=== PATIENT | female | born 1970 | race Caucasian/White ===

== ENCOUNTER 2017-05-26 10:41 | Inpatient (IN) | payer BC ==
[2017-05-26 11:52] VITALS: BMI 17.6
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
[2017-05-26] MEDS ORDERED: MENTHOL/PHENOL 1 EACH UD MM PRN (17:40)
[2017-05-26] MEDS ORDERED: MAG HYDROX/AL HYDROX/SIMETH 30 ML UNIT-DOSE CUP PO PRN (17:40)
[2017-05-26] MEDS ORDERED: IBUPROFEN 400 MG TABLET (FP) PO PRN (17:40)
[2017-05-26] MEDS ORDERED: P-EPHED 60MG/TRIPROLIDI 2.5MG TABLET PO PRN (17:40)
[2017-05-26] MEDS ORDERED: MAGNESIUM CITRATE 300 ML BOTTLE PO PRN (17:40)
[2017-05-26] MEDS ORDERED: LOPERAMIDE HCL 2 MG CAPSULE PO PRN (17:40)
[2017-05-26] MEDS ORDERED: ACETAMINOPHEN 325 MG TABLET (FP) PO PRN (17:40)
[2017-05-26] MEDS ORDERED: MAGNESIUM HYDROX 2400MG/30ML ORAL SUSPENSION 30 ML CUP PO PRN (17:40)
[2017-05-26] MEDS ORDERED: guaiFENesin/D-METHORPHAN HB 10 ML UNIT-DOSE CUPS PO PRN (17:40)
[2017-05-26] MEDS ORDERED: chlordiazePOXIDE HCL 25 MG CAPSULE PO ONE (18:00)
[2017-05-26] MEDS: chlordiazePOXIDE HCL 25 MG CAPSULE PO SCH (22:05)
[2017-05-26] MEDS: THIAMINE HCL 100 MG TABLET (FP) PO SCH (22:05)
[2017-05-26 23:34] LABS: URINE APPEARANCE CLEAR; URINE BILIRUBIN NEGATIVE (NEGATIVE); URINE BLOOD NEGATIVE (NEGATIVE); URINE COLOR YELLOW; URINE GLUCOSE (UA) NEGATIVE (NEGATIVE); URINE KETONE TRACE (NEGATIVE); URINE LEUK ESTERASE NEGATIVE (NEGATIVE); URINE NITRITE NEGATIVE (NEGATIVE); URINE PROTEIN NEGATIVE (NEGATIVE); URINE UROBILINOGEN NEGATIVE mg/dL (0.2-1.0)
[2017-05-27] MEDS: chlordiazePOXIDE HCL 25 MG CAPSULE PO PRN (00:44)
[2017-05-27] MEDS: chlordiazePOXIDE HCL 25 MG CAPSULE PO SCH ×4 (06:02→22:15)
--- NOTE | 2017-05-27 09:41 | PN ---
S CIWA - CIWA Score Nausea/Vomitin Muscle Tremors: 3 Anxiety: 3 Agitation: 3 Paroxysmal Sweats: 3 Orientation: 0-Oriented Tacttile Disturbances: 1-Very Mild Itch/Numbness Auditory Disturbances: 0-None Visual Disturbances: 0-None Headache: 1-Very Mild CIWA-Ar Total Score: 17 S Progress Note (SOAP) Subjective: nausea, sweats, interrupted sleep, anxiety, tremors Objective: 05/27/17 09:40 Vital Signs - 24 hr 05/26/17 05/26/17 05/26/17 11:51 17:52 21:53 Temperature 97.4 F L 97.9 F 97.9 F Pulse Rate 65 60 64 Respiratory 16 18 16 Rate Blood Pressure 99/70 114/71 105/70 05/27/17 05/27/17 05/27/17 00:30 03:30 06:26 Temperature 98.8 F Pulse Rate 57 L Respiratory 18 18 16 Rate Blood Pressure 150/77 Laboratory Tests 05/26/17 Unknown Urine Color Yellow Urine Appearance Clear Urine pH 5.0 Ur Specific [place] 1.018 Urine Protein Negative Urine Glucose (UA) Negative Urine Ketones Trace H Urine Blood Negative Urine Nitrite Negative Urine Bilirubin Negative Urine Urobilinogen Negative Ur Leukocyte Esterase Negative labs still pending Assessment: 05/27/17 09:41 withdrawal sx cont detox, fluids, encourage ambulation
[2017-05-27 10:19] LABS: ANION GAP 11 (8-16); BLOOD UREA NITROGEN 5 mg/dL (7-18); CALCIUM 7.8 mg/dL (8.5-10.1); CHLORIDE 102 mmol/L (98-107); CO2 26 mmol/L (21-32); CREATININE 0.5 mg/dL (0.55-1.02); GLUCOSE,RANDOM 64 mg/dL (74-106); POTASSIUM 4.2 mmol/L (3.5-5.1); SGPT/ALT 205 U/L (12-78); SODIUM 139 mmol/L (136-145)
[2017-05-27 10:20] LABS: HEMATOCRIT 39.9 % (32.4-45.2); HEMOGLOBIN 13.1 GM/dL (10.7-15.3); MCH 33.4 pg (25.7-33.7); MCHC 32.7 g/dl (32.0-36.0); MEAN PLT VOLUME 8.8 fl (7.5-11.1); PLATELET COUNT 99 K/MM3 (134-434); RBC 3.91 M/mm3 (3.60-5.2); RDW 13.6 % (11.6-15.6); WHITE BLOOD COUNT 2.6 K/mm3 (4.0-10.0)
[2017-05-27 10:21] LABS: ALK PHOS 187 U/L (45-117); BILIRUBIN,TOTAL 0.8 mg/dL (0.2-1.0); TOT PROT 6.5 g/dl (6.4-8.2)
[2017-05-27 10:26] LABS: SGOT/AST 714 U/L (15-37)
[2017-05-27] MEDS: SERTRALINE HCL 25 MG TABLET (FP) PO SCH (10:39)
[2017-05-27] MEDS: PRENATAL VITAMINS W/ FOLIC ACID TABLET (FP) PO SCH (10:39)
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
[2017-05-27] MEDS ORDERED: FLU VACCINE QUAD 60 MCG/0.5 ML (MDV 17-18) IM ONE (12:00)
[2017-05-27] MEDS ORDERED: PNEUMOCOCCAL 23 VACCINE 0.5 ML VIAL IM ONE (12:00)
[2017-05-27] MEDS ORDERED: PNEUMOC 13-VAL CONJ-DIP CRM/PF 0.5 ML DISP.SYRIN IM ONE (12:00)
--- NOTE | 2017-05-27 14:10 | EKG ---
Test Reason : Blood Pressure : / mmHG Vent. Rate : 056 BPM Atrial Rate : 056 BPM P-R Int : 120 ms QRS Dur : 116 ms QT Int : 446 ms P-R-T Axes : 044 076 072 degrees QTc Int : 430 ms SINUS BRADYCARDIA OTHERWISE NORMAL ECG NO PREVIOUS ECGS AVAILABLE Confirmed by MD MONISHA, SHANDA ([id number]) on 05/27/2017 2:09:55 PM Referred By: Confirmed By:SHANDA BEARDEN MD
--- NOTE | 2017-05-27 15:13 | EKG ---
Test Reason : Blood Pressure : / mmHG Vent. Rate : 068 BPM Atrial Rate : 068 BPM P-R Int : 142 ms QRS Dur : 088 ms QT Int : 408 ms P-R-T Axes : 018 070 058 degrees QTc Int : 433 ms NORMAL SINUS RHYTHM Motion artifact. WHEN COMPARED WITH ECG OF 27-MAY-2017 06:49, NO SIGNIFICANT CHANGE WAS FOUND Confirmed by MD BEARDEN PENG ([id number]) on 05/27/2017 3:13:01 PM Referred By: Confirmed By:SHANDA BEARDEN MD
--- NOTE | 2017-05-27 15:15 | EKG ---
Test Reason : Blood Pressure : / mmHG Vent. Rate : 056 BPM Atrial Rate : 156 BPM P-R Int : 000 ms QRS Dur : 088 ms QT Int : 466 ms P-R-T Axes : 062 067 059 degrees QTc Int : 449 ms SINUS BRADYCARDIA Motion artifact. Normal ECG except bradycardia. Confirmed by MD MONISHA, SHANDA ([id number]) on 05/27/2017 3:15:38 PM Referred By: Confirmed By:SHANDA BEARDEN MD
[2017-05-27] MEDS: diphenhydrAMINE HCL 50 MG CAPSULE PO PRN (22:15)
[2017-05-27] MEDS: THIAMINE HCL 100 MG TABLET (FP) PO SCH (22:15)
[2017-05-28] MEDS: chlordiazePOXIDE HCL 25 MG CAPSULE PO SCH ×3 (05:34→17:40)
--- NOTE | 2017-05-28 09:37 | PN ---
S CIWA - CIWA Score Nausea/Vomitin-Mild Nausea/No Vomiting Muscle Tremors: 4-Moderate,w/Arms Extend Anxiety: 3 Agitation: 3 Paroxysmal Sweats: 1-Minimal Palms Moist Orientation: 0-Oriented Tacttile Disturbances: 0-None Auditory Disturbances: 0-None Visual Disturbances: 0-None Headache: 0-None Present CIWA-Ar Total Score: 12 BHS Progress Note (SOAP) Subjective: tremor sweat agitation irritable Objective: 05/28/17 09:31 Vital Signs Temperature 98.6 F 05/28/17 06:21 Pulse Rate 82 05/28/17 06:21 Respiratory Rate 18 05/28/17 06:21 Blood Pressure 115/83 05/28/17 06:21 O2 Sat by Pulse Oximetry (%) Laboratory Last Values WBC 2.6 K/mm3 (4.0-10.0) L 05/27/17 06:00 RBC 3.91 M/mm3 (3.60-5.2) 05/27/17 06:00 Hgb 13.1 GM/dL (10.7-15.3) 05/27/17 06:00 Hct 39.9 % (32.4-45.2) 05/27/17 06:00 MCV 102.0 fl (80-96) H 05/27/17 06:00 MCH 33.4 pg (25.7-33.7) 05/27/17 06:00 MCHC 32.7 g/dl (32.0-36.0) 05/27/17 06:00 RDW 13.6 % (11.6-15.6) 05/27/17 06:00 Plt Count 99 K/MM3 (134-434) L 05/27/17 06:00 MPV 8.8 fl (7.5-11.1) 05/27/17 06:00 Sodium 139 mmol/L (136-145) 05/27/17 06:00 Potassium 4.2 mmol/L (3.5-5.1) 05/27/17 06:00 Chloride 102 mmol/L (98-107) 05/27/17 06:00 Carbon Dioxide 26 mmol/L (21-32) 05/27/17 06:00 Anion Gap 11 (8-16) 05/27/17 06:00 BUN 5 mg/dL (7-18) L 05/27/17 06:00 Creatinine 0.5 mg/dL (0.55-1.02) L 05/27/17 06:00 Creat Clearance w eGFR > 60 (>60) 05/27/17 06:00 Random Glucose 64 mg/dL (74-106) L 05/27/17 06:00 Calcium 7.8 mg/dL (8.5-10.1) L 05/27/17 06:00 Total Bilirubin 0.8 mg/dL (0.2-1.0) 05/27/17 06:00 AST 714 U/L (15-37) H 05/27/17 06:00 ALT 205 U/L (12-78) H 05/27/17 06:00 Alkaline Phosphatase 187 U/L (45-117) H 05/27/17 06:00 Total Protein 6.5 g/dl (6.4-8.2) 05/27/17 06:00 Albumin 4.0 g/dl (3.4-5.0) 05/27/17 06:00 Urine Color Yellow 05/26/17 Unknown Urine Appearance Clear 05/26/17 Unknown Urine pH 5.0 (5.0-8.0) 05/26/17 Unknown Ur Specific [place] 1.018 (1.001-1.035) 05/26/17 Unknown Urine Protein Negative (NEGATIVE) 05/26/17 Unknown Urine Glucose (UA) Negative (NEGATIVE) 05/26/17 Unknown Urine Ketones Trace (NEGATIVE) H 05/26/17 Unknown Urine Blood Negative (NEGATIVE) 05/26/17 Unknown Urine Nitrite Negative (NEGATIVE) 05/26/17 Unknown Urine Bilirubin Negative (NEGATIVE) 05/26/17 Unknown Urine Urobilinogen Negative mg/dL (0.2-1.0) 05/26/17 Unknown Ur Leukocyte Esterase Negative (NEGATIVE) 05/26/17 Unknown RPR Titer Nonreactive (NONREACTIVE) 05/27/17 06:00 lab noted Assessment: 05/28/17 09:37 withdrawal sx Plan: continue detox
[2017-05-28] MEDS: SERTRALINE HCL 25 MG TABLET (FP) PO SCH (10:38)
[2017-05-28] MEDS: PRENATAL VITAMINS W/ FOLIC ACID TABLET (FP) PO SCH (10:38)
[2017-05-28] MEDS: chlordiazePOXIDE HCL 25 MG CAPSULE PO PRN (14:49)
[2017-05-28] MEDS: chlordiazePOXIDE 5 MG CAPSULE PO SCH (22:06)
[2017-05-28] MEDS: THIAMINE HCL 100 MG TABLET (FP) PO SCH (22:06)
[2017-05-28] MEDS: diphenhydrAMINE HCL 50 MG CAPSULE PO PRN (22:08)
[2017-05-29] MEDS: chlordiazePOXIDE 5 MG CAPSULE PO SCH ×3 (05:32→17:13)
--- NOTE | 2017-05-29 10:03 | PN ---
S Progress Note (SOAP) Subjective: tremor sweat anxiety Objective: 05/29/17 10:05 Vital Signs Temperature 97.9 F 05/29/17 06:00 Pulse Rate 60 05/29/17 06:00 Respiratory Rate 16 05/29/17 06:00 Blood Pressure 117/74 05/29/17 06:00 O2 Sat by Pulse Oximetry (%) Laboratory Last Values WBC 2.6 K/mm3 (4.0-10.0) L 05/27/17 06:00 RBC 3.91 M/mm3 (3.60-5.2) 05/27/17 06:00 Hgb 13.1 GM/dL (10.7-15.3) 05/27/17 06:00 Hct 39.9 % (32.4-45.2) 05/27/17 06:00 MCV 102.0 fl (80-96) H 05/27/17 06:00 MCH 33.4 pg (25.7-33.7) 05/27/17 06:00 MCHC 32.7 g/dl (32.0-36.0) 05/27/17 06:00 RDW 13.6 % (11.6-15.6) 05/27/17 06:00 Plt Count 99 K/MM3 (134-434) L 05/27/17 06:00 MPV 8.8 fl (7.5-11.1) 05/27/17 06:00 Sodium 139 mmol/L (136-145) 05/27/17 06:00 Potassium 4.2 mmol/L (3.5-5.1) 05/27/17 06:00 Chloride 102 mmol/L (98-107) 05/27/17 06:00 Carbon Dioxide 26 mmol/L (21-32) 05/27/17 06:00 Anion Gap 11 (8-16) 05/27/17 06:00 BUN 5 mg/dL (7-18) L 05/27/17 06:00 Creatinine 0.5 mg/dL (0.55-1.02) L 05/27/17 06:00 Creat Clearance w eGFR > 60 (>60) 05/27/17 06:00 Random Glucose 64 mg/dL (74-106) L 05/27/17 06:00 Calcium 7.8 mg/dL (8.5-10.1) L 05/27/17 06:00 Total Bilirubin 0.8 mg/dL (0.2-1.0) 05/27/17 06:00 AST 714 U/L (15-37) H 05/27/17 06:00 ALT 205 U/L (12-78) H 05/27/17 06:00 Alkaline Phosphatase 187 U/L (45-117) H 05/27/17 06:00 Total Protein 6.5 g/dl (6.4-8.2) 05/27/17 06:00 Albumin 4.0 g/dl (3.4-5.0) 05/27/17 06:00 Urine Color Yellow 05/26/17 Unknown Urine Appearance Clear 05/26/17 Unknown Urine pH 5.0 (5.0-8.0) 05/26/17 Unknown Ur Specific [place] 1.018 (1.001-1.035) 05/26/17 Unknown Urine Protein Negative (NEGATIVE) 05/26/17 Unknown Urine Glucose (UA) Negative (NEGATIVE) 05/26/17 Unknown Urine Ketones Trace (NEGATIVE) H 05/26/17 Unknown Urine Blood Negative (NEGATIVE) 05/26/17 Unknown Urine Nitrite Negative (NEGATIVE) 05/26/17 Unknown Urine Bilirubin Negative (NEGATIVE) 05/26/17 Unknown Urine Urobilinogen Negative mg/dL (0.2-1.0) 05/26/17 Unknown Ur Leukocyte Esterase Negative (NEGATIVE) 05/26/17 Unknown RPR Titer Nonreactive (NONREACTIVE) 05/27/17 06:00 lab noted Assessment: 05/29/17 10:05 withdrawal sx Plan: continue detox
[2017-05-29] MEDS: SERTRALINE HCL 25 MG TABLET (FP) PO SCH (10:29)
[2017-05-29] MEDS: PRENATAL VITAMINS W/ FOLIC ACID TABLET (FP) PO SCH (10:29)
[2017-05-29] MEDS: chlordiazePOXIDE HCL 25 MG CAPSULE PO PRN (14:58)
[2017-05-29] MEDS: THIAMINE HCL 100 MG TABLET (FP) PO SCH (22:16)
[2017-05-29] MEDS: chlordiazePOXIDE HCL 10 MG CAPSULE PO SCH (22:16)
[2017-05-30] MEDS: chlordiazePOXIDE HCL 10 MG CAPSULE PO SCH (05:28)
[2017-05-30 06:22] VITALS: BP 99/66; PULSE 83; TEMP 97.5
--- NOTE | 2017-05-30 08:23 | DS ---
[facility] Detox Discharge Summary Admission Date: 05/26/17 Discharge Date: 05/30/17 - History Present History: Alcohol Dependence Additional Comments: FOLLOW UP WITH AFTER CARE PROGRAM ARRANGEMENT Pertinent Past History: NICOTINE DEPENDENCE DEPRESSION - Physical Exam Results Vital Signs: Vital Signs Temperature 97.5 F L 05/30/17 06:00 Pulse Rate 83 05/30/17 06:00 Respiratory Rate 16 05/30/17 06:00 Blood Pressure 99/66 05/30/17 06:00 O2 Sat by Pulse Oximetry (%) Pertinent Admission Physical Exam Findings: WITHDRAWAL SYMPTOM AND FINDING - Treatment Hospital Course: Detox Protocol Followed, Detoxed Safely, Responded well, Discharged Condition Good Patient has Accepted a Rehab Referral to: DECLINED - Medication Discharge Medications: Ambulatory Orders Sertraline HCl 25 mg PO DAILY 05/26/17 - Diagnosis (1) Alcohol dependence with uncomplicated withdrawal Status: Acute (2) Depression Status: Acute (3) Nicotine dependence Status: Acute - AMA Did Patient Leave Against Medical Advice: No
== END 2017-05-30 07:35 | disposition home or self-care (01) | DRG 897 ==
LOC: YASAS 10:41 → Y6N 16:27
PROVIDERS: ADMIT Internal Medicine; ATTEND Internal Medicine
PROC: HZ2ZZZZ Detoxification Services for Substance Abuse Treatment (ICD-10-PCS; principal; 2017-05-26)
DX: F10.230 Alcohol dependence with withdrawal, uncomplicated (principal); F33.9 Major depressive disorder, recurrent, unspecified; F17.210 Nicotine dependence, cigarettes, uncomplicated; G47.00 Insomnia, unspecified; Z86.79 Personal history of other diseases of the circulatory system; Z87.42 Personal history of other diseases of the female genital tract; Z86.2 Personal history of diseases of the blood and blood-forming organs and certain disorders involving the immune mechanism
CPT/HCPCS: 36415; 80053; 81003; 85027; 86593; 90688; 90732; 93005; 93010; G0009